=== PATIENT | female | born 1960 | race Caucasian/White ===

== ENCOUNTER → 2024-05-27 | Outpatient (CLI) | payer MEDICARE ==
--- NOTE | 2024-05-27 13:39 | US ---
EXAMINATION TYPE: US carotid duplex BILAT DATE OF EXAM: 05/27/2024 COMPARISON: NONE CLINICAL INDICATION: Female, 63 years old with history of [id number] BILAT CAROTID ARTERY STENOSIS; TECHNIQUE: Grayscale, color Doppler and spectral Doppler evaluation of the bilateral carotid systems and vertebral arteries. Indirect Doppler criteria was utilized. FINDINGS: EXAM MEASUREMENTS: RIGHT: Peak Systolic Velocity (PSV) cm/sec ----- Right CCA: 104 ----- Right ICA: 74.6 ----- Right ECA: 129 ICA/CCA ratio: 0.68 RIGHT: End Diastole cm/sec ----- Right CCA: 16.9 ----- Right ICA: 17.8 ----- Right ECA: 18.1 LEFT: Peak Systolic Velocity (PSV) cm/sec ----- Left CCA: 72.8 ----- Left ICA: 105 ----- Left ECA: 141 ICA/CCA ratio: 1.45 LEFT: End Diastole cm/sec ----- Left CCA: 18.4 ----- Left ICA: 29.8 ----- Left ECA: 9.5 VERTEBRALS (direction of flow): Right Vertebral: Antegrade Left Vertebral: Antegrade Rhythm: Normal GEOGRAPHIC INFORMATION SYSTEMS DIRECTOR NOTES: Mild plaque bilateral bifurcations. No evidence of significant stenosis Color Doppler imaging shows patency with blood flow throughout the carotid artery. Spectral waveforms are within normal limits. IMPRESSION: Right: No hemodynamically significant stenosis. Left: No hemodynamically significant stenosis. Criteria for Assigning % of Stenosis / Diameter reduction (Estimation based on the indirect measurements of the internal carotid artery velocities (ICA PSV). 1. Normal (no stenosis)=ICA PSV < 125 cm/s: ratio < 2.0: ICA EDV<40 cm/s. 2. Less than 50% stenosis=ICA PSV < 125 cm/s: ratio < 2.0: ICA EDV<40 cm/s. 3. 50 to 69% stenosis=ICA PSV of 125 to 230 cm/s: ration 2.0 ? 4.0: ICA EDV 40-100 cm/s. 4. Greater than 70% stenosis to near occlusion= ICA PSV > 230 cm/s: ratio > 4.0: ICA EDV > 100 cm/s. 5. Near occlusion= ICA PSV velocities may be low or undetectable: variable ratio and ICA EDV. 6. Total occlusion=unable to detect flow. [facility], , 05/27/2024 1:37 PM
--- NOTE | 2024-05-27 14:17 | MM ---
Reason for Exam: Screening (asymptomatic). Last mammogram was performed 13 year(s) and 3 month(s) ago. Patient History: Menarche at age 11. First Full-Term at age 17. Left ovary removed at age 27. Right ovary removed at age 27. Hysterectomy at age 27. Postmenopausal. Risk Values: No 5 year model risk: 1.2%. NCI Lifetime model risk: 4.6%. Prior Study Comparison: 02/28/2011 Bilateral Screening Mammogram, [facility]. Tissue Density: There are scattered areas of fibroglandular density. Findings: Analyzed By CAD. There is no suspicious group of microcalcifications or new suspicious mass in either breast. Asymmetric density right MLO view above the level of the nipple measuring 4.7 cm from the nipple. Overall Assessment: Incomplete: need additional imaging evaluation, BI-RAD 0 Management: Diagnostic Mammogram of the right breast. . Patient should continue monthly self-breast exams. A clinical breast exam by your physician is recommended on an annual basis. This exam should not preclude additional follow-up of suspicious palpable abnormalities. Note on No scores and lifetime risk: 1. A No score greater than 3% is considered moderate risk. If this is the case, consider specialist referral to assess eligibility for a risk reducing agent. 2. If overall lifetime risk for the development of breast cancer is 20% or higher, the patient may qualify for future screening with alternating mammogram and breast MRI. [facility], , 05/27/2024 2:14 PM. Electronically signed and approved by: Abdias Hughes M.D. Radiologis
--- NOTE | 2024-05-27 14:35 | BD ---
EXAMINATION TYPE: Axial Bone Density DATE OF EXAM: 05/27/2024 CLINICAL HISTORY: 63 years old Female. ICD-10 CODE: U38127 OSTEO RIGHT HIP , Additional History: Height: 59.25 Weight: 156 FRAX RISK QUESTIONS: Family History (Parent hip fracture): yes History of Fracture in Adulthood: yes Secondary Osteoporosis: 3. Menopause before 45: yes RISK FACTORS HISTORY OF: MEDICATIONS: EXAM MEASUREMENTS: Bone mineral densitometry was performed using the [employer] System. Bone mineral density as measured about the Lumbar spine is: ----- L1-L4(G/cm2): 1.303 T Score Values are as follows: ----- L1: 0.1 ----- L2: 0.5 ----- L3: 0.7 ----- L4: 2.4 ----- L1-L4: 1.0 Z Score Values are as follows: ----- L1: 1.5 ----- L2: 1.9 ----- L3: 2.1 ----- L4: 3.8 ----- L1-L4: 2.4 Bone mineral density has: Increased 1.2% since study of: 04-18-2011 Bone mineral density about the R hip (g/cm2): 0.876 Bone mineral density about the L hip (g/cm2): 0.855 T Score values are as follows: -----R Neck: -0.8 -----L Neck: -2.7 -----R Total: -1.0 -----L Total: -1.2 Z Score values are as follows: -----R Neck: 0.5 -----L Neck: -1.4 -----R Total: 0.0 -----L Total: -0.1 Bone mineral density has: Decreased -11.9% since study of: 04-18-2011 FRAX%s: The graph provided illustrates a 37.8% chance for a major osteoporotic fx and a 6.7% chance f or the hips probability for fx in 10 years time. IMPRESSION: Osteopenia (T Score between -2.5 and -1). There is slightly increased risk of fracture and the patient may be considered for treatment. Re-Screen 2-5 years. NOTE: T-SCORE=SD OF THE YOUNG ADULT MEAN. [facility], , 05/27/2024 2:33 PM
--- NOTE | 2024-05-27 15:04 | CA ---
Transthoracic Echo Report Name: Varsha Quezada Age: 63 Gender: F : 1960 Exam Date: 05/27/2024 13:19 Exam Location: [place] [facility] Ht (in): 59 Wt (lb): 156 Ordering Physician: Johanne Calabrese MD Attending/Referring Phys: Registered Nurse Practitioner Eleanor Hawk RDCS Procedure CPT: Indications: I34.0 Cardiac Hx: Technical Quality: Good Contrast 1: Total Dose (mL): Contrast 2: Total Dose (mL): MEASUREMENTS (Male / Female) Normal Values 2D ECHO LV Diastolic Diameter PLAX 4.1 cm 4.2 - 5.9 / 3.9 - 5.3 cm LV Systolic Diameter PLAX 2.1 cm IVS Diastolic Thickness 1.0 cm 0.6 - 1.0 / 0.6 - 0.9 cm LVPW Diastolic Thickness 1.2 cm 0.6 - 1.0 / 0.6 - 0.9 cm LV Relative Wall Thickness 0.5 RV Internal Dim ED PLAX 2.3 cm LA Systolic Diameter LX 3.6 cm 3.0 - 4.0 / 2.7 - 3.8 cm LV Diastolic Volume MOD BP 41.9 cm??? 67 - 155 / 56 - 104 cm??? LV Systolic Volume MOD BP 13.4 cm??? 22 - 58 / 19 - 49 cm??? LV Ejection Fraction MOD BP 68.1 % >= 55 % LV Cardiac Index MOD BP 1387.9 cm???/min???m??? LV Diastolic Volume MOD 4C 58.7 cm??? LV Systolic Volume MOD 4C 18.5 cm??? LV Ejection Fraction MOD 4C 68.6 % LV Cardiac Index MOD 4C 1957.7 cm???/min???m??? LV Diastolic Length 4C 6.6 cm LV Systolic Length 4C 5.3 cm LV Diastolic Volume MOD 2C 25.8 cm??? LV Systolic Volume MOD 2C 9.0 cm??? LV Ejection Fraction MOD 2C 65.3 % LV Cardiac Index MOD 2C 818.9 cm???/min???m??? LV Diastolic Length 2C 5.6 cm LV Systolic Length 2C 4.8 cm LA Volume 24.6 cm??? 18 - 58 / 22 - 52 cm??? LA Volume Index 14.1 cm???/m??? 16 - 28 cm???/m??? M-MODE Aortic Root Diameter MM 2.4 cm LA Systolic Diameter MM 3.8 cm LA Ao Ratio MM 1.6 AV Cusp Separation MM 1.6 cm DOPPLER MV Area PHT 2.2 cm??? Mitral E Point Velocity 65.3 cm/s Mitral A Point Velocity 96.1 cm/s Mitral E to A Ratio 0.7 MV Deceleration Time 342.2 ms TR Peak Velocity 231.8 cm/s TR Peak Gradient 21.5 mmHg Right Ventricular Systolic Press 25.6 mmHg FINDINGS Left Ventricle Left ventricular ejection fraction is estimated at 60-65 %. Mildly increased septal wall thickness. Mildly increased posterior wall thickness. Normal left ventricular systolic function with no obvious regional wall motion abnormalities. Left ventricular cavity size normal. Right Ventricle Normal right ventricular size and function. Right ventricular systolic pressure within normal limits. Right Atrium Normal right atrial size. Left Atrium Mild left atrial dilatation. Mitral Valve Structurally normal mitral valve. Trace to mild mitral regurgitation. No mitral stenosis. Aortic Valve Trileaflet aortic valve. No aortic valve stenosis or regurgitation. Tricuspid Valve Structurally normal tricuspid valve. Mild tricuspid regurgitation. No tricuspid stenosis. Pulmonic Valve Structurally normal pulmonic valve. Trace pulmonic regurgitation. No pulmonic stenosis. Pericardium No pericardial or pleural effusion. Aorta Normal size aortic root and proximal ascending aorta. CONCLUSIONS Left ventricular ejection fraction is estimated at 60-65 % Trace to mild mitral regurgitation. Mild tricuspid regurgitation. No pericardial or pleural effusion. Previewed by: Dr. Pk Silva DO (Electronically Signed) Final Date: 27 May 2024 15:03
== END | disposition home or self-care (01) ==
LOC: RADMAMWWP 12:31
PROVIDERS: ATTEND Internal Medicine
DX: Z12.31 Encounter for screening mammogram for malignant neoplasm of breast (principal); R92.323 Mammographic fibroglandular density, bilateral breasts; I65.23 Occlusion and stenosis of bilateral carotid arteries; M81.0 Age-related osteoporosis without current pathological fracture; M85.89 Other specified disorders of bone density and structure, multiple sites; I08.1 Rheumatic disorders of both mitral and tricuspid valves; Z78.0 Asymptomatic menopausal state
CPT/HCPCS: 77063; 77067; 77080; 93306; 93880

== ENCOUNTER → 2024-05-29 | Outpatient (CLI) | payer MEDICARE ==
--- NOTE | 2024-05-30 11:34 | MM ---
Reason for Exam: Additional evaluation requested from abnormal screening. Last screening mammogram was performed less than 1 month ago. Patient History: Menarche at age 11. First Full-Term at age 17. Left ovary removed at age 27. Right ovary removed at age 27. Hysterectomy at age 27. Postmenopausal. Risk Values: No 5 year model risk: 1.2%. NCI Lifetime model risk: 4.6%. Prior Study Comparison: 02/28/2011 Bilateral Screening Mammogram, [facility]. 05/27/2024 Bilateral MG 3D screening mammo w/cad, [facility]. Tissue Density: Right: The breasts are heterogeneously dense, which may obscure small masses. Findings: Analyzed By CAD. No evidence for mass or distortion. Benign punctate calcifications. Overall Assessment: Benign, BI-RAD 2 Management: Screening Mammogram of both breasts in 1 year. . Results were given to the patient verbally at the time of exam. Patient should continue monthly self-breast exams. A clinical breast exam by your physician is recommended on an annual basis. This exam should not preclude additional follow-up of suspicious palpable abnormalities. Note on No scores and lifetime risk: 1. A No score greater than 3% is considered moderate risk. If this is the case, consider specialist referral to assess eligibility for a risk reducing agent. 2. If overall lifetime risk for the development of breast cancer is 20% or higher, the patient may qualify for future screening with alternating mammogram and breast MRI. [facility], , 05/30/2024 11:31 AM. Electronically signed and approved by: Abdias Hughes M.D. Radiologis
== END | disposition home or self-care (01) ==
LOC: RADMAMWWP 13:05
PROVIDERS: ATTEND Internal Medicine
DX: R92.8 Other abnormal and inconclusive findings on diagnostic imaging of breast (principal); R92.331 Mammographic heterogeneous density, right breast; Z78.0 Asymptomatic menopausal state
CPT/HCPCS: 77065; G0279; 77061